=== PATIENT | female | born 1945 | race Caucasian/White ===

== ENCOUNTER 2018-11-20 05:47 | Emergency (ER) | payer BC, OTHER ==
[~2018-11-20] VITALS: Ht 160 cm; Wt 66.3 kg
[2018-11-20 05:51] VITALS: Ht 160 cm; Wt 66.3 kg
[2018-11-20] MEDS ORDERED: morphine 2 MG INJ IV STA (06:08)
[2018-11-20] MEDS ORDERED: ONDANSETRON 4 MG INJ IV STA (06:41)
[2018-11-20] MEDS ORDERED: morphine 4 MG/ML VIAL IV STA (06:54)
[2018-11-20] MEDS ORDERED: ASPI-903 PO (07:25)
[2018-11-20] MEDS ORDERED: BUPIVACAINE 0.5% (MPF) 10 ML VIAL INJ ONE (07:30)
[2018-11-20] MEDS ORDERED: LIDOCAINE 1%/EPI (MDV) 50 ML INJ INJ ONE (07:30)
[2018-11-20] MEDS ORDERED: LIDOCAINE 1% (MDV) 20 ML INJ ONE (07:35)
--- NOTE | 2018-11-20 07:40 | ERD ---
ER Documentation Chief Complaint Chief Complaint C/O LT WRIST, NOSE AND LT FOREHEAD PAIN S/P SLIP AND FALL HPI This is a 73-year-old female who presents to the emergency room for evaluation of left wrist pain after ground-level fall. The patient states that she was at home and her dogs barking and she went to go outside and tripped and fell down 3 steps. She states she did land on her face and on her left wrist. She denies taking any blood thinning medications and denies any loss of consciousness. She localizes the pain that she has to the left wrist and states that it is a sharp pain worse with movement. She denies any numbness or tingling in her hand or in her fingers. She denies any neck pain, chest pain, shortness of breath, nausea or vomiting. ROS All systems reviewed and are negative except as per history of present illness. Medications Home Meds Reported Medications Aspirin* (Aspirin* Chew) 81 Mg Tab.chew, 81 MG PO DAILY, TAB.CHEW 11/20/18 Allergies Allergies: Coded Allergies: No Known Allergy (Unverified , 11/20/18) PMhx/Soc History of Surgery: Yes () Anesthesia Reaction: No Hx Neurological Disorder: No Hx Respiratory Disorders: No Hx Cardiac Disorders: Yes (MO WITH STENT PLACEMENT) Hx Psychiatric Problems: No Hx Miscellaneous Medical Probl: No Hx Alcohol Use: No Hx Substance Use: No Hx Tobacco Use: No Smoking Status: Former smoker Physical Exam Vitals Vital Signs Date Temp Pulse Resp B/P (MAP) Pulse Ox O2 O2 Flow FiO2 Time Delivery Rate 11/20/18 97.0 64 19 168/79 93 05:51 (108) Physical Exam INITIAL VITAL SIGNS: Reviewed by me GENERAL: The patient is well developed and appropriate for usual state of health in no apparent distress HEENT: Abrasions noted on the left periorbital region, contusion over the bridge of the nose, pupils equal, round, and reactive to light. EOMI. There is no scleral icterus. NECK: C-spine is soft and supple, there is no meningismus. There is no cervical lymphadenopathy. LUNGS: Clear to auscultation bilaterally. There are no rales, wheezes or rhonchi. HEART: Regular rate and rhythm, no murmurs, clicks, rubs or gallops. ABDOMEN: Soft, non-tender, non-distended. There are bowel sounds in all four quadrants. No rebound or guarding. EXTREMITIES: Visible deformity noted at the left wrist, capillary Refill less than 2 seconds, sensation is intact in the hand and wrist, there is no peripheral cyanosis or edema. No focal swelling or erythema. NEUROLOGICAL: The patient moves all four extremities with 5/5 strength. Cranial nerves II - XII are intact. Normal gait. Alert and oriented SKIN: There is no apparent rash or petechiae. HEME/LYMPHATIC: There is no evidence of excessive bruising or lymphedema. PSYCHIATRIC: The patient does not appear anxious or depressed. Results 24 hrs Current Medications Medications Dose Sig/Delia Start Time Status Last (Trade) Ordered Route PRN Stop Time Admin Dose Reason Admin Morphine 2 mg ONCE STAT 11/20/18 DC 11/20/18 Sulfate IV 06:08 06:44 (morphine) 11/20/18 06:09 Ondansetron 4 mg ONCE STAT 11/20/18 DC HCl (Zofran IV 06:41 Inj) 11/20/18 06:42 Morphine 4 mg ONCE STAT 11/20/18 DC 11/20/18 Sulfate IV 06:54 07:00 (morphine) 11/20/18 06:55 Lidocaine/ 50 ml ONCE ONCE 11/20/18 DC Epinephrine INJ 07:30 (Xylocaine 11/20/18 07:35 1%/ Epi (Mdv)) Bupivacaine 10 ml ONCE ONCE 11/20/18 DC HCl INJ 07:30 (Marcaine 11/20/18 07:31 0.5% (Mpf Ez)) Lidocaine 20 ml ONCE ONCE 11/20/18 DC (Xylocaine SC 08:00 1% (Mdv) 20 11/20/18 08:01 ml) Lidocaine 20 ml STK-MED 11/20/18 DC (Xylocaine ONCE .ROUTE 07:35 1% (Mdv) 20 11/20/18 07:36 ml) Lidocaine/ 1 ml ONCE INJ 11/20/18 DC Epinephrine 08:00 (Xylocaine 11/20/18 08:00 1%/ Epi (Mdv) 20 ml) Procedures/MDM X-ray Forearm 2V Interpreted by me: Bones: [No fracture] Joints: [No dislocation] Foreign body: [None] X-ray Wrist 3V Interpreted by me: Scaphoid: [Normal] Bones: Comminuted intra-articular distal left radial fracture and fracture the base left ulnar styloid process Joints: [No dislocation] Foreign body: [None] CT brain without: 1. Negative for intracranial hemorrhage or other acute process. 2. 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 3. Intracranial atherosclerosis and chronic small vessel ischemic changes. CT cervical spine without: No fractures This 73-year-old female presents to the ER for evaluation of left-sided wrist pain after ground-level fall. On my exam she had periorbital abrasions however she was neurologically intact with no focal neurological deficits. CT the brain and cervical spine were obtained and showed no signs of fractures or acute intracranial abnormalities or bleeding. The patient does have no infarcts however she has no neuro deficits on exam and I have relayed this to her. Her x-ray does show a intra-articular distal radial fracture and ulnar fracture. I have contacted her orthopedic surgeon spine surgeon Dr. Torres and I reviewed the films with him. Dr. Torres is at bedside and has performed a hematoma block and has a partially reduces patient's fracture. The patient was given referral to Dr. Comer for outpatient hand surgery. She is remained hemodynamically stable, she remains neurovascularly intact with good pulses and good cap refill. She will be discharged at this time with a prescription for Motrin, Tylenol with codeine Departure Diagnosis: Primary Impression: Distal radius fracture, left Additional Impressions: Facial contusion Fracture of ulnar styloid Condition: Stable [place] BHATTI DO Nov 20, 2018 07:40
[2018-11-20] MEDS ORDERED: LIDOCAINE 1%/EPI (1:100,000) (MDV) 20 ML INJ SCH (08:00)
[2018-11-20] MEDS ORDERED: LIDOCAINE 1% (MDV) 20 ML INJ SC ONE (08:00)
[2018-11-20] MEDS ORDERED: IBUP-1542 PO (09:25)
[2018-11-20] MEDS ORDERED: ACET1TAB40 PO (09:25)
[2018-11-20 10:38] VITALS: BP 136/84; PULSE 69; RESP 16
--- NOTE | 2018-11-20 13:42 | CONS ---
Assessment/Plan Assessment/Plan Hospital Course (Demo Recall) This is a 73-year-old [id number] female who fell early this morning and sustained a severely comminuted intra-articular fracture of her left distal radius. Given the fracture pattern and comminution this is a very unstable fracture and will most likely require surgery. A formal reduction is indicated to allow for soft tissue healing as well as decrease compression on the median nerve. Post reduction films show improved alignment however patient will most likely require open reduction internal fixation for optimal healing and function of the wrist. I am going to refer her to a hand surgeon given the severe comminution osteopenia of the bone. Post reduction examination shows that she is neurovascular intact. Plan: Hematoma block to left distal radius Closed reduction and sugar tong splint of left distal radius Elevation Ice Follow-up with hand surgeon. Assessment/Plan (Daily) Procedure note: Left distal radius hematoma block and closed reduction and sugar tong splint (short arm splint) The fracture site was identified by palpation of the left distal radius. A 23- gauge needle was used to enter the fracture site after the skin was cleaned with alcohol. The plunger was withdrawn and hematoma was flowing easily into the syringe confirming placement of the needle. A 50% mixture of 1% lidocaine and half percent bupivacaine was injected into the fracture site. After the block was allowed time to set the patient had significant relief in pain. Manual traction was used with the production administrative assistant of an ED special effects technician to bring the distal radius out to length. Reduction maneuver was performed first by exaggerating the deformity and reducing the fracture. Once the reduction was satisfactory the arm was wrapped in soft roll while maintaining manual traction. This was followed by a sugar tong plaster splint covered by more sof-rol and radames wraps. This was followed by three-point mold to further mobilize and hold the reduction. Patient tolerated the procedure well. Post reduction examination was NVID. Consultation Date/Type/Reason Admit Date/Time Date of Consultation: Nov 20, 2018 Date/Time of Note DATE: 11/20/18 TIME: 13:26 Hx of Present Illness This is a 73-year-old [id number] female who sustained a fall early this morning. She hit her head as well as fell on her left wrist. She had severe pain swelling in the form of the left wrist. She presented to the [facility] emergency department where x-rays were taken and she was diagnosed with a left distal radius fracture. I was consulted as an orthopedic surgeon to further evaluate and treat the patient. The patient states she has pain only in her left wrist. Denies pain in her fingers hand forearm elbow humerus and shoulder. Denies numbness and tingling. Prior to this she had full use of her hand and wrist and did not require any assistance. Denies any previous injury. Denies loss of consciousness. Per radiologist a head CT is negative for any acute injury. Patient denies fever, chills, shortness of breath, chest pain, nausea/vomiting, constipation, diarrhea, numbness, and tingling. Past Medical History myocardial infarction Home Meds Active Scripts Acetaminophen with Codeine (Acetaminophen-Cod #3 Tablet) 1 Each Tablet, 1 TAB PO Q6H PRN for PAIN, #10 TAB Prov:N[place] BHATTI DO 11/20/18 Ibuprofen* (Motrin*) 600 Mg Tab, 600 MG PO Q8, #20 TAB Prov:N[place] BHATTI DO 11/20/18 Reported Medications Aspirin* (Aspirin* Chew) 81 Mg Tab.chew, 81 MG PO DAILY, TAB.CHEW 11/20/18 Allergies: Coded Allergies: No Known Allergy (Unverified , 11/20/18) Past Surgical History Social History Alcohol Use: other Smoking Status: Former smoker Drug Use: none Exam/Review of Systems Exam Vitals Vital Signs Date Temp Pulse Resp B/P (MAP) Pulse Ox O2 O2 Flow FiO2 Time Delivery Rate 11/20/18 98.6 69 16 136/84 95 Room Air 10:38 (101) Exam General: Awake, alert, in no acute distress, pleasant and cooperative Heart: regular rhythm Lungs: breathing comfortably, no tachypnea or dyspnea MUSCULOSKELETAL: Left upper extremity: Skin is intact. There is gross deformity of the distal radius with significant volar and radial displacement. There is tenderness to palpation of the wrist. There is no tenderness to palpation of the fingers. There is no tenderness palpation of the forearm elbow humerus or shoulder. Sensation intact to light touch in a median, ulnar, radial, and axillary distribution. Motor is intact in a median, ulnar, radial, anterior interosseous, and posterior interosseous nerve distribution. Radial and ulnar artery are +2. Wrist extension and flexion are intact. Compartments are soft. Imaging Imaging Prereduction 3 views of the left wrist and 2 views of the left forearm personally reviewed. The x-rays demonstrate a severely comminuted intra- articular distal radius fracture and ulnar styloid fracture. There is significant shortening. Loss of radial height and inclination. The distal radius fracture displaced volarly and radially. Diffuse osteopenia of the bones. Postreduction film 3 views of the left wrist personally reviewed: There is improvement in alignment of the distal radius fracture. The volar displacement and radial displacement is significantly improved. However the radius still has severe shortening and loss of inclination. Severely comminuted intra-articular fracture. HERNAN DILLARD MD Nov 20, 2018 13:38
== END 2018-11-20 10:40 | disposition home or self-care (01) ==
LOC: E/R 05:47
DX: S52.572A Other intraarticular fracture of lower end of left radius, initial encounter for closed fracture (principal); I25.2 Old myocardial infarction; S00.83XA Contusion of other part of head, initial encounter; S52.612A Displaced fracture of left ulna styloid process, initial encounter for closed fracture; W10.9XXA Fall (on) (from) unspecified stairs and steps, initial encounter; Y92.9 Unspecified place or not applicable; Z98.61 Coronary angioplasty status; Z87.891 Personal history of nicotine dependence
CPT/HCPCS: 29125; 70450; 72125; 73090; 73110; 96374; 99285; J2270